=== PATIENT | female | born 1985 | race African-American/Black ===

== ENCOUNTER 2024-12-19 18:28 | Inpatient (IN) | payer BC ==
[~2024-12-19] VITALS: Ht 167.6 cm; Wt 78.9 kg
[2024-12-19 18:30] VITALS: O2SAT 100
[2024-12-19 19:43] LABS: BASOPHILS % 0.4 % (0.0-2.0); EOSINOPHILS % 0.1 % (0.0-5.0); HEMATOCRIT. 30.7 % (36.0-48.0); HEMOGLOBIN. 9.8 g/dL (12.0-16.0); LYMPHOCYTES % 27.9 % (20.0-50.0); MEAN PLATELET VOLUME 8.4 fl (7.4-10.4); MONOCYTES % 7.1 % (2.0-8.0); NEUTROPHILS % 64.5 % (40.0-76.0); PLATELET 294 x1000/uL (130-400); RED BLOOD CELL COUNT 4.32 mill/uL (4.2-5.4); RED CELL DISTRIBUTION WIDTH 16.9 % (11.6-14.6)
[2024-12-19 19:55] LABS: INR 1.1
[2024-12-19 19:58] LABS: CREATININE 0.9 mg/dL (0.6-1.0)
[2024-12-19 19:59] LABS: TROPONIN I HIGH SENSITIVITY < 4 ng/L (3.0-34); UREA NITROGEN BLOOD < 5 mg/dL (9-23)
[2024-12-19 20:00] LABS: ASPARTATE AMINOTRANSFERASE 10 IU/L (<34)
[2024-12-19 20:01] LABS: BILIRUBIN DIRECT 0.1 mg/dL (<=3.0); BILIRUBIN TOTAL 0.3 mg/dL (0.1-1.0); PROTEIN TOTAL 7.0 g/dL (6.0-8.3)
[2024-12-19 20:13] LABS: HCG SCREEN NEGATIVE
[2024-12-19 20:46] LABS: *AMPHETAMINES SCREEN URINE NEGATIVE (NEGATIVE); *BARBITURATES SCREEN URINE NEGATIVE (NEGATIVE); *BENZODIAZEPINES SCREEN URINE NEGATIVE (NEGATIVE); *COCAINE SCREEN URINE NEGATIVE (NEGATIVE); CANNABINOID URINE SCREEN NEGATIVE (NEGATIVE); ECSTASY MDMA SCREEN URINE NEGATIVE (NEGATIVE); METHADONE URINE SCREEN NEGATIVE (NEGATIVE); OPIATES URINE SCREEN NEGATIVE (NEGATIVE); PHENCYCLIDINE URINE SCREEN NEGATIVE (NEGATIVE)
[2024-12-19] MEDS: KCL 20MEQ/100ML PREMIX 100 ML IV SCH (21:07)
[2024-12-20] MEDS ORDERED: IPRATROPIUM/ALBUTEROL 0.5-3(2.5)MG/3ML NEB HHN PRN (01:15)
[2024-12-20] MEDS ORDERED: ONDANSETRON HCL 4MG/2ML INJ IV PRN (01:15)
[2024-12-20] MEDS ORDERED: ACETAMINOPHEN 325MG TABLET PO PRN (01:15)
[2024-12-20] MEDS ORDERED: DOCUSATE SODIUM 100MG CAPSULE PO PRN (01:15)
[2024-12-20 04:00] VITALS: BP 139/84; PULSE 72; RESP 20; TEMP 36.6; O2SAT 99
[2024-12-20 04:21] VITALS: BP 152/77; PULSE 68; RESP 17; TEMP 37.0852
[2024-12-20 07:37] LABS: BASOPHILS % 0.3 % (0.0-2.0); EOSINOPHILS % 0.1 % (0.0-5.0); HEMATOCRIT. 29.5 % (36.0-48.0); HEMOGLOBIN. 9.4 g/dL (12.0-16.0); LYMPHOCYTES % 31.5 % (20.0-50.0); MEAN PLATELET VOLUME 9.1 fl (7.4-10.4); MONOCYTES % 7.5 % (2.0-8.0); NEUTROPHILS % 60.6 % (40.0-76.0); PLATELET 260 x1000/uL (130-400); RED BLOOD CELL COUNT 4.15 mill/uL (4.2-5.4); RED CELL DISTRIBUTION WIDTH 17.2 % (11.6-14.6)
[2024-12-20 08:00] VITALS: BP 149/91; PULSE 80; RESP 18; TEMP 36.6; O2SAT 100
[2024-12-20 08:48] LABS: CREATININE 0.9 mg/dL (0.6-1.0)
[2024-12-20 08:49] LABS: UREA NITROGEN BLOOD 6 mg/dL (9-23)
[2024-12-20 14:24] LABS: CLARITY URINE CLEAR (CLEAR); COLOR URINE YELLOW (YELLOW); GLUCOSE URINE NEGATIVE (NEGATIVE); KETONES URINE 3+ (NEGATIVE); LEUKOCYTE ESTERASE URINE NEGATIVE (NEGATIVE); NITRITE URINE NEGATIVE (NEGATIVE); OCCULT BLOOD URINE NEGATIVE (NEGATIVE); PH URINE 7.0 (4.5-8.0); PROTEIN URINE TRACE (NEGATIVE); SPECIFIC GRAVITY URINE 1.026 (1.005-1.030); UROBILINOGEN URINE 1.0 E.U./dL (0.2-1.0)
[2024-12-20 15:15] LABS: SQUAMOUS EPITHELIAL CELL URINE 3+ /lpf (RARE/1+)
[2024-12-20 15:16] LABS: BACTERIA URINE 3+; MUCUS URINE 3+ /lpf (< = 2+); RBC URINE NONE SEEN /hpf (0-2)
[2024-12-20] MEDS: POTASSIUM CHLORIDE 20MEQ TABLET SR PO SCH (17:17)
[2024-12-20 20:00] VITALS: BP 142/85; PULSE 78; RESP 20; TEMP 36.2; O2SAT 98
[2024-12-20] MEDS: HYDROXYZINE 25MG TABLET PO PRN (21:36)
[2024-12-20 22:30] LABS: FOLIC ACID (FOLATE) SERUM 12.32 ng/mL (>5.38); VITAMIN B12 SERUM 500 pg/mL (211-911)
[2024-12-21] VITALS: BP 140/82; PULSE 68; RESP 18; TEMP 36.7; O2SAT 100
[2024-12-21 04:00] VITALS: BP 136/74; PULSE 64; RESP 18; TEMP 36.7; O2SAT 98
[2024-12-21 08:00] VITALS: BP 129/87; PULSE 96; RESP 18; TEMP 36.6; O2SAT 97
[2024-12-21 09:13] LABS: *AMPHETAMINES SCREEN URINE NEGATIVE (NEGATIVE); *BARBITURATES SCREEN URINE NEGATIVE (NEGATIVE); *BENZODIAZEPINES SCREEN URINE NEGATIVE (NEGATIVE); *COCAINE SCREEN URINE NEGATIVE (NEGATIVE); CANNABINOID URINE SCREEN NEGATIVE (NEGATIVE); ECSTASY MDMA SCREEN URINE NEGATIVE (NEGATIVE); METHADONE URINE SCREEN NEGATIVE (NEGATIVE); OPIATES URINE SCREEN NEGATIVE (NEGATIVE); PHENCYCLIDINE URINE SCREEN NEGATIVE (NEGATIVE)
[2024-12-21 12:00] VITALS: BP 142/98; PULSE 109; RESP 18; TEMP 36.6; O2SAT 100
[2024-12-21 16:00] VITALS: BP 146/83; PULSE 88; RESP 18; TEMP 36.5; O2SAT 98
[2024-12-21 20:00] VITALS: BP 135/82; PULSE 82; RESP 18; TEMP 36.7; O2SAT 98
[2024-12-21] MEDS: TRAZODONE HCL 50MG TABLET PO SCH (21:29)
[2024-12-21] MEDS: RISPERIDONE 0.5MG TABLET PO SCH (21:29)
[2024-12-22] VITALS: BP 142/80; PULSE 80; RESP 18; TEMP 36.7; O2SAT 96
[2024-12-22 04:00] VITALS: BP 138/84; PULSE 80; RESP 18; TEMP 36.7; O2SAT 98
[2024-12-22 08:00] VITALS: BP 101/74; PULSE 100; RESP 17; TEMP 37; O2SAT 100
[2024-12-22 12:00] VITALS: BP 140/74; PULSE 95; RESP 18; TEMP 36.7; O2SAT 100
[2024-12-22 16:00] VITALS: BP 126/91; PULSE 80; RESP 18; TEMP 36.6; O2SAT 97
[2024-12-22 20:00] VITALS: BP 184/106; PULSE 127; RESP 19; TEMP 36.6; O2SAT 99
[2024-12-22] MEDS: CLONIDINE 0.1MG TABLET PO PRN (20:43)
[2024-12-23] VITALS: BP 116/72; PULSE 104; RESP 18; TEMP 36.5; O2SAT 99
[2024-12-23 04:00] VITALS: BP 110/68; PULSE 97; RESP 17; TEMP 36.4; O2SAT 99
[2024-12-23 16:00] VITALS: BP 139/95; PULSE 88; RESP 19; TEMP 36.5; O2SAT 97
[2024-12-23 20:00] VITALS: BP 121/81; PULSE 80; RESP 18; TEMP 36.1; O2SAT 98
[2024-12-24 04:00] VITALS: BP 129/85; PULSE 85; RESP 18; TEMP 36.2; O2SAT 97
[2024-12-24 12:00] VITALS: BP 139/88; PULSE 74; RESP 20; TEMP 36.4; O2SAT 97
[2024-12-24 20:00] VITALS: BP 154/51; PULSE 109; RESP 18; TEMP 36.6; O2SAT 99
[2024-12-25] VITALS: BP 125/51; PULSE 95; RESP 17; TEMP 36.5; O2SAT 99
[2024-12-25 04:00] VITALS: BP 102/55; PULSE 105; RESP 18; TEMP 36.6; O2SAT 99
[2024-12-25] MEDS: ACETAMINOPHEN 325MG TABLET PO PRN (06:08)
[2024-12-25 16:00] VITALS: BP 142/75; PULSE 107; RESP 18; TEMP 36.7; O2SAT 96
[2024-12-25 20:00] VITALS: BP 138/78; PULSE 92; RESP 20; TEMP 36.6; O2SAT 97
[2024-12-26] VITALS: BP 144/79; PULSE 88; RESP 18; TEMP 36.4; O2SAT 96
[2024-12-26 04:00] VITALS: BP 145/71; PULSE 89; RESP 20; TEMP 36.4; O2SAT 97
[2024-12-26 08:00] VITALS: BP 162/97; PULSE 134; RESP 18; TEMP 35.9; O2SAT 100
[2024-12-26] MEDS: HYDROXYZINE 25MG TABLET PO PRN (09:01)
[2024-12-26 20:00] VITALS: BP 156/88; PULSE 126; RESP 18; TEMP 36.3; O2SAT 100
[2024-12-27 12:00] VITALS: BP 153/90; PULSE 70; RESP 20; TEMP 36.2; O2SAT 100
[2024-12-27] MEDS: LORAZEPAM 0.5MG TABLET PO PRN (13:20)
[2024-12-27 16:00] VITALS: BP 155/89; PULSE 132; RESP 20; TEMP 36.4; O2SAT 100
[2024-12-27 19:02] LABS: BASOPHILS % 0.5 % (0.0-2.0); EOSINOPHILS % 0.1 % (0.0-5.0); HEMATOCRIT. 32.1 % (36.0-48.0); HEMOGLOBIN. 10.1 g/dL (12.0-16.0); LYMPHOCYTES % 23.4 % (20.0-50.0); MEAN PLATELET VOLUME 9.1 fl (7.4-10.4); MONOCYTES % 4.3 % (2.0-8.0); NEUTROPHILS % 71.7 % (40.0-76.0); PLATELET 272 x1000/uL (130-400); RED BLOOD CELL COUNT 4.44 mill/uL (4.2-5.4); RED CELL DISTRIBUTION WIDTH 17.5 % (11.6-14.6)
[2024-12-27 19:05] LABS: INR 1.1
[2024-12-27 19:06] LABS: CREATININE 0.9 mg/dL (0.6-1.0)
[2024-12-27 19:07] LABS: TRIGLYCERIDE 82 mg/dL (0-150); UREA NITROGEN BLOOD 6 mg/dL (9-23)
[2024-12-27 19:08] LABS: LDL CHOLESTEROL 116 mg/dL (5-100)
[2024-12-27 20:00] VITALS: BP 144/93; PULSE 148; RESP 22; TEMP 37
[2024-12-28 10:44] VITALS: BP 165/98; PULSE 125; RESP 20; TEMP 98.2
[2024-12-28] MEDS ORDERED: RISP05 PO (11:22)
[2024-12-28] MEDS ORDERED: TRAZ-251 PO (11:22)
== END 2024-12-28 12:30 | disposition home or self-care (01) | DRG 948 ==
LOC: ER 18:28 → 8WST 21:04 → EDBEDREQ 21:07 → EDBEDREQTM 21:07 → ENRESERV 21:27 → 7EST 12-26 10:27
PROVIDERS: ADMIT Family Medicine Adult Medicine; ATTEND Family Medicine Adult Medicine
DX: R41.82 Altered mental status, unspecified (principal); I10 Essential (primary) hypertension; F22 Delusional disorders; F94.0 Selective mutism; F41.0 Panic disorder [episodic paroxysmal anxiety]; G47.9 Sleep disorder, unspecified; Z80.9 Family history of malignant neoplasm, unspecified
CPT/HCPCS: 36415; 71045; 80048; 80061; 80076; 80305; 80307; 80320; 80329; 81003; 82140; 82550; 82607; 82746; 84425; 84443; 84484; 84703; 85025; 93005; 99285; A4606; J3480; G0480